=== PATIENT | female | born 1975 | race African-American/Black ===

== ENCOUNTER 2019-06-10 13:44 | Emergency (ER) | payer OTHER ==
[~2019-06-10] VITALS: Ht 182.9 cm; Wt 120.7 kg
[2019-06-10 13:50] VITALS: Ht 182.9 cm; Wt 120.7 kg
[2019-06-10 14:57] LABS: BASOPHIL % 0.2 % (0-2); PLATELET COUNT 209 x10^3mcL (130-400); RED CELL DISTRIBUTION WIDTH 13.8 % (11.5-14.5)
[2019-06-10 15:07] LABS: CALCIUM 8.8 mg/dL (8.5-10.1); CARBON DIOXIDE 25.6 mmol/L (21-32); CHLORIDE SERUM 105 mmol/L (98-107); CREATININE SERUM 0.8 mg/dL (0.6-1.0); GFR1 > 60 mL/min; GLUCOSE SERUM 85 mg/dL (74-106); SODIUM SERUM 141 mmol/L (136-145)
[2019-06-10 15:16] LABS: ALBUMIN 4.1 g/dL (3.4-5.0); ALKALINE PHOSPHATASE 93 U/L (46-116); ALT/SGPT 27 U/L (14-59); AST/SGOT 21 U/L (15-37); BILIRUBIN TOTAL 0.4 mg/dL (0.20-1.00); TOTAL PROTEIN, SERUM 7.8 g/dL (6.4-8.2)
[2019-06-10 15:45] VITALS: BP 141/98
== END 2019-06-10 15:45 | disposition home or self-care (01) ==
LOC: ED 13:44
PROVIDERS: Emergency Medicine
DX: R07.89 Other chest pain (principal); E11.9 Type 2 diabetes mellitus without complications
CPT/HCPCS: 36415; J1885; Q0092